=== PATIENT | male | born 1995 | race African-American/Black ===

== ENCOUNTER 2022-02-13 22:40 | Outpatient (CLI) | payer OTHER | END 2022-02-13 22:41 | disposition EMS.NT | LOC: EMS 22:40 | DX: R09.89 Other specified symptoms and signs involving the circulatory and respiratory systems (principal); F41.9 Anxiety disorder, unspecified; R53.83 Other fatigue ==

== ENCOUNTER 2022-11-04 06:54 | Outpatient (CLI) | payer OTHER ==
--- NOTE | 2022-11-04 12:32 | Ultrasound Report ---
PROCEDURE: Abdomen Limited INDICATIONS: ELEVATED LIVER ENZYMES TECHNIQUE: Real-time focused scanning was performed of the abdomen, with image documentation. COMPARISONS: None. FINDINGS: Liver: Liver is normal in size and homogeneous in echotexture. Gallbladder: Unremarkable. Biliary ducts: Intrahepatic bile ducts are non-dilated. Extrahepatic bile duct caliber measures 4 m m. Normal is 6-7 mm or less in diameter, or 10 mm or less post-cholecystectomy. Pancreas: Visualized portions of the pancreas are sonographically normal. Right kidney: Normal in size and echotexture. Right kidney measures 10.5 cm long. No hydronephrosis or nephrolithiasis. No solid masses. No complex renal cystic lesions which require follow-up. IVC: Intrahepatic inferior vena cava is patent. Miscellaneous: No free abdominal fluid. IMPRESSION: Unremarkable sonographic appearance of the liver. No biliary ductal dilation demonstrated. Reviewed by: Landon Nation MD on 11/04/2022 12:31 PM PDT Approved by: Landon Nation MD on 11/04/2022 12:31 PM PDT Station ID: [id number]
== END 2022-11-04 06:55 | disposition home or self-care (01) ==
LOC: DI 06:54
PROVIDERS: ATTEND Student in an Organized Health Care Education/Training Program
DX: R74.01 Elevation of levels of liver transaminase levels (principal)

== ENCOUNTER 2023-03-15 16:27 | Outpatient (CLI) | payer OTHER | END 2023-03-15 16:28 | disposition home or self-care (01) | LOC: RT 16:27 | DX: J45.909 Unspecified asthma, uncomplicated (principal) | CPT/HCPCS: 94060 ==

== ENCOUNTER 2023-05-01 07:30 | Outpatient (CLI) | payer OTHER | END 2023-05-01 23:59 | disposition critical access hospital (66) | LOC: EMS 07:30 | DX: R07.9 Chest pain, unspecified (principal); R00.0 Tachycardia, unspecified | CPT/HCPCS: A0425; A0429 ==

== ENCOUNTER 2023-05-01 07:58 | Emergency (ER) | payer OTHER ==
[2023-05-01 08:09] VITALS: O2SAT 100
--- NOTE | 2023-05-01 08:13 | ED Physician Documentation ---
PD HPI CHEST PAIN - Stated complaint Stated Complaint: CHEST PX/DIZZY - Chief complaint Chief Complaint: Cardiac - History obtained from History obtained from: Patient - History of Present Illness Timing - onset: How many hours ago (2), Today Timing - onset during: Sleep, Rest Timing - duration: Hours (1) Timing - details: Abrupt onset, Now resolved Quality: Tightness, Aching Location: Substernal, Left chest Improved by: No: Rest Worsened by: No: Inspiration, Movement Associated symptoms: Shortness of air, Feeling faint / dizzy, Palpitations (feeling heart rate is racing fast. Did not count heart rate.). No: Diaphoresis, Nausea Similar symptoms before: No diagnosis (has had similar briefly for minutes to hour at a time in the past. Seen by PCP and had Ziopatch for a week, with the rsults he can pull up on his MyChart and he shows to me: he had frequent PVCs and PACs but also self-limited episodes of SVT. Had not been back to PCP as yet, with f/u still 2 wks off) Recently seen: Clinic (Ziopatch showing PVCs/PACs and brief SVT. Had stress test that was normal. Has ECHO scheduled for few weeks from now. No Rx as yet.) Review of Systems Constitutional: denies: Fever, Chills Nose: denies: Rhinorrhea / runny nose, Congestion Throat: denies: Sore throat Cardiac: reports: Palpitations. denies: Pedal edema, Calf pain Respiratory: denies: Cough Neurologic: denies: Near syncope, Syncope, Altered mental status PD PAST MEDICAL HISTORY - Past Medical History Cardiovascular: None Respiratory: None Neuro: None Endocrine/Autoimmune: None GI: None : None HEENT: None Psych: None Musculoskeletal: None Derm: None - Past Surgical History Past Surgical History: No - Present Medications Home Medications: Ambulatory Orders Medication Instructions Recorded Confirmed Nicotinamide Mononucleotide 400 mg PO DAILY 10/30/22 10/30/22 Magnesium Oxide [Mag Ox] 400 mg PO DAILY #30 tablet 05/01/23 Metoprolol Succinate [Toprol Xl] 25 mg PO DAILY #30 tablet 05/01/23 Potassium Chloride 10 meq PO DAILY #30 tab 05/01/23 - Allergies Allergies/Adverse Reactions: Allergies Allergy/AdvReac Type Severity Reaction Status Date / Time No Known Drug Allergies Allergy Verified 11/03/22 10:05 - Social History Does the pt smoke?: No Smoking Status: Never smoker Does the pt drink ETOH?: Yes Does the pt have substance abuse?: No - POLST Patient has POLST: No PD ED PE NORMAL - Vitals Vital signs reviewed: Yes - General General: Alert and oriented X 3, No acute distress, Well developed/nourished - HEENT HEENT: Moist mucous membranes, Pharynx benign - Neck Neck: Supple, no meningeal sign, Thyroid normal - Cardiac Cardiac: RRR, No murmur - Respiratory Respiratory: No respiratory distress, Clear bilaterally - Derm Derm: Normal color, Warm and dry - Extremities Extremities: No edema, No calf tenderness / cord - Neuro Neuro: Alert and oriented X 3, No motor deficit, Normal speech Results - Vitals Vitals: Vital Signs - 24 hr 05/01/23 05/01/23 08:07 10:09 Temperature 37.2 C Heart Rate 74 70 Respiratory 15 18 Rate Blood Pressure 139/97 H 138/74 H O2 Saturation 100 100 Oxygen O2 Source Room air - EKG (time done) 08:10 EKG releavant findings:: EKG personally interpreted by author of this note. Relevant findings are: Rate: Rate (enter#) (70) Rhythm: NSR [place]: Normal Intervals: Normal NE QRS: Normal Ischemia: Normal ST segments, ST elevation c/w repol (particularly c/w early repol V1-V2. V3-V6 with more nonspecific changes to it. ), Non specific changes (t waves flat. ). No: ST depression, T wave inversion - Labs Labs: Laboratory Tests 05/01/23 05/01/23 05/01/23 08:22 08:22 08:22 WBC 5.2 RBC 5.53 Hgb 15.7 Hct 47.4 MCV 85.7 MCH 28.4 MCHC 33.1 RDW 11.6 L Plt Count 243 MPV 9.6 Neut # (Auto) 3.2 Lymph # (Auto) 1.6 [place] # (Auto) 0.3 Eos # (Auto) 0.0 Baso # (Auto) 0.0 Absolute Nucleated RBC 0.00 Nucleated RBC % 0.0 Sodium 139 Potassium 3.3 L Chloride 102 Carbon Dioxide 26 Anion Gap 11.0 BUN 8 Creatinine 1.1 Estimated GFR (MDRD) 96 Glucose 93 Calcium 9.9 Magnesium 1.4 L Total Bilirubin 0.8 AST 42 ALT 123 H Alkaline Phosphatase 60 Troponin I High Sens 2.7 Total Protein 6.9 Albumin 4.5 Globulin 2.4 Albumin/Globulin Ratio 1.9 Lipase 20 TSH 0.97 PD Medical Decision Making - ED course Complexity details: reviewed results (labs are good. CXR without signs of CHF/edema. Normal heart size. Presume episode today was SVT as well. ), re- evaluated patient (he is feeling okay here. Can start low dose metoprolol and f/u PCP. Add potassium and mag. 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 Appt with PCP in couple weeks. ), d/w patient Departure - Departure Disposition: Home, Self Care Clinical Impression: SVT (supraventricular tachycardia), Rapid heart rate, Hypokalemia, Hypomagnesemia Condition: Stable Record reviewed to determine appropriate education?: Yes Instructions: ED Potassium Deficiency, ED Tachycardia Pat PSVT Follow-Up: [facility] [Provider Group] Prescriptions: Magnesium Oxide [Mag Ox] 400 mg PO DAILY #30 tablet Potassium Chloride 10 meq PO DAILY #30 tab Metoprolol Succinate [Toprol Xl] 25 mg PO DAILY #30 tablet Comments: By your description and with the results from the Zio patch. Had previously, it does sound likely you are having recurrent SVT episodes. When you get an episode, you can try various maneuvers called Valsalva maneuvers to see if they will stop it more abruptly. A common effect of 1 can be to hold your breath and tight in your chest and abdomen consistently and steadily for about 30 seconds in the sitting position and then relaxing your breath and laying backward and raising your legs up. This changes the pressure in the chest and gives a feedback reflex to lower the heart rate. You were chest x-ray is clear without any signs of enlargement of the heart nor signs of heart failure. Your blood test called troponin is normal so no signs of heart muscle damage or injury occurring with these. Your EKG does have a mild abnormality called early repolarization. It does look similar to the rhythm and complexes that you showed me on your Zio patch results. Your blood test otherwise show a low potassium and magnesium and this can affect the frequency and threshold level for having the extra beats such as PACs and PVCs as well as other rhythm abnormalities such as the SVT. You would want to stay well-hydrated and also add potassium and magnesium supplements dietarily and medication for the next several weeks to a month. Follow-up with your primary care this coming week, call Wednesday for an appointment. We will start you on a beta-paolo medicine called metoprolol 25 mg which is the lowest dose and see if that will decrease the frequency of the extra abnormal beats. I sent your prescriptions to the [facility] pharmacy. Forms: PCP List Discharge Date/Time: 05/01/23 10:50
[2023-05-01 08:28] LABS: BASOPHILS % (AUTO) 0.6 %; EOSINOPHILS % (AUTO) 0.6 %; HCT - HEMATOCRIT 47.4 % (42.0-52.0); HGB - HEMOGLOBIN 15.7 g/dL (14.0-18.0); LYMPHOCYTES # (AUTO) 1.6 10^3/uL (1.5-3.5); LYMPHOCYTES % (AUTO) 31.2 %; MEAN CORPUSCULAR HEMOGLOBIN 28.4 pg (27.0-31.0); MEAN CORPUSCULAR HGB CONC 33.1 g/dL (32.0-36.0); MEAN CORPUSCULAR VOLUME 85.7 fL (80.0-94.0); MEAN PLATELET VOLUME 9.6 fL (7.4-11.4); MONOCYTES # (AUTO) 0.3 10^3/uL (0.0-1.0); MONOCYTES % (AUTO) 6.4 %; NEUTROPHILS # (AUTO) 3.2 10^3/uL (1.5-6.6); PLT - PLATELET COUNT 243 10^3/uL (130-450); RED BLOOD COUNT 5.53 10^6/uL (4.70-6.10); RED CELL DISTRIBUTION WIDTH 11.6 % (12.0-15.0); WHITE BLOOD COUNT 5.2 x10^3/uL (4.8-10.8)
--- NOTE | 2023-05-01 08:40 | XRAY Report ---
PROCEDURE: Chest 1V INDICATIONS: Chest pain TECHNIQUE: One view of the chest was acquired. COMPARISON: None. FINDINGS: Surgical changes and devices: None. Lungs and pleura: No pleural effusions or pneumothorax. Lungs are clear. Mediastinum: Mediastinal contours appear normal. Heart size is normal. Bones and chest wall: No suspicious bony lesions. Overlying soft tissues appear unremarkable. IMPRESSION: No acute cardiopulmonary process. Reviewed by: Landon Lewis MD on 05/01/2023 8:38 AM [facility] Approved by: Landon Lewis MD on 05/01/2023 8:38 AM [facility] Station ID: [id number]
[2023-05-01 08:51] LABS: ALBUMIN 4.5 g/dL (3.2-5.5); ALBUMIN/GLOBULIN RATIO 1.9 (1.0-2.2); BILIRUBIN,TOTAL 0.8 mg/dL (0.2-1.0); CALCIUM 9.9 mg/dL (8.5-10.3); CREATININE 1.1 mg/dL (0.6-1.3); POTASSIUM 3.3 mmol/L (3.5-4.5); TOTAL PROTEIN 6.9 g/dL (6.4-8.9)
[2023-05-01 08:54] LABS: TROPONIN I HIGH SENSITIVITY 2.7 ng/L (2.3-19.7)
[2023-05-01] MEDS ORDERED: ONDANSETRON 4 MG/2 ML VIAL IVP STA (09:22)
[2023-05-01] MEDS ORDERED: SODIUM CHLORIDE 0.9% 1,000 ML IV STA (09:22)
[2023-05-01] MEDS ORDERED: METOPROLOL SUCCINATE 25 MG TABLET PO STA (09:23)
[2023-05-01] MEDS ORDERED: POTASSIUM BICARB 25 MEQ TABLET PO STA (09:23)
[2023-05-01 09:38] LABS: MAGNESIUM 1.4 mg/dL (1.7-2.3)
[2023-05-01] MEDS ORDERED: MAGNESIUM OXIDE 400 MG TABLET PO STA (09:48)
[2023-05-01 09:53] LABS: THYROID STIMULATING HORMONE 0.97 uIU/mL (0.34-5.60)
[2023-05-01 10:51] VITALS: BP 138/74
== END 2023-05-01 10:50 | disposition home or self-care (01) ==
LOC: EDUNIT# → ED 07:58
DX: I47.10 Supraventricular tachycardia, unspecified (principal); E87.6 Hypokalemia; E83.42 Hypomagnesemia
CPT/HCPCS: 36415; 71045; 80053; 83690; 83735; 84443; 84484; 85025; 93005; 96374; 99284; A9270

== ENCOUNTER 2023-05-05 20:15 | Outpatient (CLI) | payer OTHER | END 2023-05-05 23:59 | disposition short-term general hospital (02) | LOC: EMS 20:15 | DX: R07.89 Other chest pain (principal); R42 Dizziness and giddiness | CPT/HCPCS: A0425; A0427 ==

== ENCOUNTER 2023-07-19 18:54 | Outpatient (CLI) | payer OTHER | END 2023-07-19 23:59 | disposition left against medical advice (07) | LOC: EMS 18:54 | DX: I47.10 Supraventricular tachycardia, unspecified (principal) ==

== ENCOUNTER 2023-07-19 19:59 | Outpatient (CLI) | payer OTHER | END 2023-07-19 23:59 | disposition short-term general hospital (02) | LOC: EMS 19:59 | DX: I47.10 Supraventricular tachycardia, unspecified (principal) | CPT/HCPCS: A0425; A0429 ==

== ENCOUNTER 2023-08-08 10:01 | Outpatient (CLI) | payer OTHER | END 2023-08-08 23:59 | disposition EMS.NT | LOC: EMS 10:01 | DX: R00.2 Palpitations (principal) ==

== ENCOUNTER 2023-08-31 14:37 | Outpatient (CLI) | payer OTHER | END 2023-08-31 23:59 | disposition left against medical advice (07) | LOC: EMS 14:37 | DX: T65.91XA Toxic effect of unspecified substance, accidental (unintentional), initial encounter (principal); R00.0 Tachycardia, unspecified ==

== ENCOUNTER 2023-09-09 07:30 | Outpatient (CLI) | payer OTHER | END 2023-09-09 23:59 | disposition EMS.NT | LOC: EMS 07:30 | DX: J45.909 Unspecified asthma, uncomplicated (principal) ==

== ENCOUNTER 2023-10-29 09:32 | Emergency (ER) | payer OTHER ==
[2023-10-29 10:14] LABS: BASOPHILS % (AUTO) 0.4 %; EOSINOPHILS # (AUTO) 0.1 10^3/uL (0.0-0.7); EOSINOPHILS % (AUTO) 1.6 %; HCT - HEMATOCRIT 48.1 % (42.0-52.0); LYMPHOCYTES # (AUTO) 1.9 10^3/uL (1.5-3.5); LYMPHOCYTES % (AUTO) 34.2 %; MEAN CORPUSCULAR HEMOGLOBIN 28.5 pg (27.0-31.0); MEAN CORPUSCULAR HGB CONC 33.3 g/dL (32.0-36.0); MEAN CORPUSCULAR VOLUME 85.7 fL (80.0-94.0); MEAN PLATELET VOLUME 9.7 fL (7.4-11.4); MONOCYTES # (AUTO) 0.3 10^3/uL (0.0-1.0); MONOCYTES % (AUTO) 5.3 %; NEUTROPHILS # (AUTO) 3.2 10^3/uL (1.5-6.6); NEUTROPHILS % (AUTO) 58.3 %; PLT - PLATELET COUNT 239 10^3/uL (130-450); RED BLOOD COUNT 5.61 10^6/uL (4.70-6.10); RED CELL DISTRIBUTION WIDTH 11.6 % (12.0-15.0); WHITE BLOOD COUNT 5.5 x10^3/uL (4.8-10.8)
[2023-10-29 10:31] LABS: ALBUMIN 4.6 g/dL (3.2-5.5); ALBUMIN/GLOBULIN RATIO 1.6 (1.0-2.2); BILIRUBIN,TOTAL 1.1 mg/dL (0.2-1.0); CALCIUM 9.9 mg/dL (8.5-10.3); CREATININE 1.1 mg/dL (0.6-1.3); TOTAL PROTEIN 7.5 g/dL (6.4-8.9)
[2023-10-29] MEDS: METOPROLOL 5 MG/5 ML VIAL IVP STA (10:31)
--- NOTE | 2023-10-29 10:32 | ED Physician Documentation ---
PD HPI CHEST PAIN - Stated complaint Stated Complaint: RT SIDE CHEST PRESSURE,SOA - Chief complaint Chief Complaint: Resp - History obtained from History obtained from: Patient - Additional information Additional information: The patient comes to the emergency department chief complaint of right-sided chest burning and pressure on and off for the last month, but fairly continuous overall. He states that he has a vague sense of the pressure and burning at all times but then sometimes it flares up. He states it got especially bad last night and he finally decided he should come in and get checked out. The patient states he is otherwise very healthy. He has no history of smoking, diabetes, hypertension, or elevated cholesterol that he knows of. No family history of coronary artery disease. The patient does have a history of SVT which was worked up in May. At that time, he underwent echocardiogram and was told that everything else looked good. He thinks that he was told his coronary arteries were clear at that time but he is not sure. The patient states that he is still having the sensation right next to his sternum on the right. He denies any worsening with positions or deep breaths. He has not been febrile or had any other signs of illness. No other complaints at this time. PD PAST MEDICAL HISTORY - Past Medical History Cardiovascular: None Respiratory: None Neuro: None Endocrine/Autoimmune: None GI: None : None HEENT: None Psych: None Musculoskeletal: None Derm: None - Past Surgical History Past Surgical History: No - Present Medications Home Medications: Ambulatory Orders Medication Instructions Recorded Confirmed Nicotinamide Mononucleotide 400 mg PO DAILY 10/30/22 10/30/22 Magnesium Oxide [Mag Ox] 400 mg PO DAILY #30 tablet 05/01/23 Metoprolol Succinate [Toprol Xl] 25 mg PO DAILY #30 tablet 05/01/23 Potassium Chloride 10 meq PO DAILY #30 tab 05/01/23 - Allergies Allergies/Adverse Reactions: Allergies Allergy/AdvReac Type Severity Reaction Status Date / Time No Known Drug Allergies Allergy Verified 10/29/23 09:43 - Social History Does the pt smoke?: No Smoking Status: Never smoker Does the pt drink ETOH?: Yes Does the pt have substance abuse?: No - POLST Patient has POLST: No PD ED PE NORMAL - Vitals Vital signs reviewed: Yes - General General: Alert and oriented X 3, No acute distress, Well developed/nourished, Other (Well-appearing.) - HEENT HEENT: Atraumatic, PERRL, EOMI, Moist mucous membranes - Neck Neck: Supple, no meningeal sign - Cardiac Cardiac: RRR, No murmur, Strong equal pulses - Respiratory Respiratory: No respiratory distress, Clear bilaterally - Abdomen Abdomen: Soft, Non tender, Non distended - Back Back: No CVA TTP - Derm Derm: Normal color, Warm and dry, No rash - Extremities Extremities: No deformity, No edema, No calf tenderness / cord - Neuro Neuro: Other (Alert, grossly intact.) - Psych Psych: Normal mood, Normal affect Results - Vitals Vitals: Oxygen O2 Source Room air - EKG (time done) 0948 EKG releavant findings:: EKG personally interpreted by author of this note. Relevant findings are: Rate: Rate (enter#) (61) Rhythm: NSR [place]: Normal Intervals: Prolonged [place], Other (TX interval depressed slightly in lead II and aVF, as well as V3 through V6.) QRS: Normal Ischemia: Other (ST elevation leads I, II, and V3 through V6.) - Labs Labs: Laboratory Tests 10/29/23 10/29/23 10/29/23 10:08 10:08 12:23 WBC 5.5 RBC 5.61 Hgb 16.0 Hct 48.1 MCV 85.7 MCH 28.5 MCHC 33.3 RDW 11.6 L Plt Count 239 MPV 9.7 Neut # (Auto) 3.2 Lymph # (Auto) 1.9 [place] # (Auto) 0.3 Eos # (Auto) 0.1 Baso # (Auto) 0.0 Absolute Nucleated RBC 0.00 Nucleated RBC % 0.0 Sodium 137 Potassium 4.0 Chloride 103 Carbon Dioxide 30 Anion Gap 4.0 L BUN 9 Creatinine 1.1 Estimated GFR (MDRD) 96 Glucose 95 Calcium 9.9 Total Bilirubin 1.1 H AST 20 ALT 44 Alkaline Phosphatase 56 Troponin I High Sens 3.7 3.7 Total Protein 7.5 Albumin 4.6 Globulin 2.9 Albumin/Globulin Ratio 1.6 Lipase 15 - Rads (name of study) chest XR Relevant Findings:: Final report received, See rad report (nad) PD Medical Decision Making - ED course Complexity details: reviewed results, re-evaluated patient, considered differential, d/w patient, d/w [facility] consultant ED course: The patient overall had very low risk factors for coronary artery disease, but his EKG did show some concerning findings that could potentially represent an ST elevation [place]. I as precautionary measure started the patient on all of the appropriate medications and called [facility] to discuss the case as a possible STEMI transfer. I spoke with Dr. Connell who is on duty in the emergency department he did express his willingness to accept the patient but also his opinion that the ST elevation perhaps did not appear so ischemic. He offered to discuss the EKG with the on-call window assembler, Dr. Mead, and to show him images of the EKG so he could evaluate it and determine whether he felt the patient should come as a STEMI transfer. Dr. Mead did review the case and view the EKG images and did communicate that he did not feel that this represented ischemia and that the patient could be worked up in the usual manner here in the emergency department would be, rather than coming as a STEMI transfer. The patient did not have any worsening of his pain in the ED. His initial troponin was negative and his vital signs remained stable. The pt had been started on ASA, metoprolol, and heparin. 2nd troponin was done, and unchanged. The remainder of his labs, as well as his EKG, were unremarkable. The pt was feeling good, and was stable for discharge home. I have d/w pt the need for follow-up to discuss endoscopy and any other helpful work-up with his PCP. We have discussed the usual indications for return. Departure - Departure Disposition: 01 Home, Self Care Clinical Impression: Chest pain Qualifiers: Chest pain type: unspecified Qualified Code(s): R07.9 - Chest pain, unspecified Condition: Stable Instructions: ED Chest Pain Atypical Unkn Cause Comments: All of your cardiac enzymes look good, as does your chest x-ray. Initially, the recurrent some concerning findings on your EKG and this raised concern that you may have Be a very unusual case in which a person is young and has minimal risk factors, but has a heart attack anyway. Because of this, and because this is a life-threatening emergency, you were given the medications that we would normally give in case of a heart attack, as the risk of being given the medications and not having a heart attack is much less than the risk of not receiving the appropriate medications if there is a heart attack. Your EKG and case were reviewed by the window assembler at [facility], Dr. Lucero, and he did not feel that the findings, in light of all of the other factors, were likely to represent a heart attack. As such, we kept you here to check your laboratory studies and thankfully, your cardiac enzyme sets were both reassuring. It is not entirely clear what is causing your chest pain and you will need to follow-up with your primary doctor for further evaluation. Given the burning, it may be related to some reflux of gastric contents into your esophagus. It is also possible that the pain is coming from structures of your chest wall, including tendon, muscle, ligament, or even the nerve that runs underneath each of your each ribs. There is no evidence of any abnormality in your lungs themselves. Please schedule the next available appointment with your primary doctor. If you develop severe chest pain or shortness of breath, please return to the emergency department immediately. Forms: PCP List Discharge Date/Time: 10/29/23 13:18
[2023-10-29] MEDS: ASPIRIN 325 MG TABLET PO STA (10:33)
[2023-10-29] MEDS: METOPROLOL TARTRATE 50 MG TABLET PO STA (10:33)
[2023-10-29] MEDS: HEPARIN 25000UNITS/500ML (D5W) 25,000 UNIT/500 ML BAG IV SCH (10:33)
[2023-10-29 10:37] LABS: TROPONIN I HIGH SENSITIVITY 3.7 ng/L (2.3-19.7)
--- NOTE | 2023-10-29 10:40 | XRAY Report ---
PROCEDURE: Chest 1V INDICATIONS: Chest pain TECHNIQUE: One view of the chest was acquired. COMPARISON: 05/01/2023. FINDINGS: Surgical changes and devices: None. Lungs and pleura: No pleural effusions or pneumothorax. Lungs are clear. Mediastinum: Mediastinal contours appear normal. Heart size is normal. Bones and chest wall: No suspicious bony lesions. Overlying soft tissues appear unremarkable. IMPRESSION: No acute cardiopulmonary process. Reviewed by: Ar Salguero MD on 10/29/2023 10:38 AM PDT Approved by: Ar Salguero MD on 10/29/2023 10:38 AM PDT Station ID: [id number]
[2023-10-29 13:40] VITALS: BP 118/69; O2SAT 97
== END 2023-10-29 13:18 | disposition home or self-care (01) ==
LOC: ED 09:32
DX: R07.9 Chest pain, unspecified (principal); Z79.899 Other long term (current) drug therapy
CPT/HCPCS: 36415; 71045; 80053; 83690; 84484; 85025; 93005; 96365; 96366; 96375; 99284; A9270; 85730